=== PATIENT | female | born 1990 | race African-American/Black ===

== ENCOUNTER 2021-12-23 13:06 | Emergency (ER) | payer MEDICAID, OTHER ==
[~2021-12-23] VITALS: Ht 157.5 cm; Wt 55.0 kg
[2021-12-23 15:34] LABS: CHLORIDE 98 mEq/L (98-107)
[2021-12-23 15:36] LABS: HCG SCREEN NEGATIVE
[2021-12-23 15:41] LABS: BASOPHILS % 1.5 % (0.0-2.0); EOSINOPHILS % 2.1 % (0.0-5.0); HEMATOCRIT. 39.2 % (36.0-48.0); HEMOGLOBIN. 12.8 g/dL (12.0-16.0); MEAN CORPUSCULAR HEMOGLOBIN 28.6 pg (28.0-32.0); MEAN CORPUSCULAR VOLUME 87.3 fL (81.0-99.0); MEAN PLATELET VOLUME 7.5 fl (7.4-10.4); MONOCYTES % 11.7 % (2.0-8.0); NEUTROPHILS % 35.7 % (40.0-76.0); PLATELET 437 x1000/uL (130-400); RED BLOOD CELL COUNT 4.48 mill/uL (4.2-5.4); RED CELL DISTRIBUTION WIDTH 20.1 % (11.6-14.6)
[2021-12-23] MEDS ORDERED: LORAZEPAM 0.5MG TABLET PO ONE (17:45)
[2021-12-24 06:30] VITALS: BP 151/100
== END 2021-12-24 13:05 | disposition home or self-care (01) ==
LOC: ER 13:56
DX: R07.89 Other chest pain (principal); I10 Essential (primary) hypertension
CPT/HCPCS: 36415; 71045; 80053; 84484; 84703; 85025; 93005; 99285